=== PATIENT | female | born 1960 | race Asian ===

== ENCOUNTER 2019-11-09 18:09 | Emergency (ER) | payer BC ==
[2019-11-09 18:22] VITALS: BP 165/95; PULSE 70; TEMP 98.8; BMI 23.9
--- NOTE | 2019-11-09 18:43 | PDOC ---
History of Present Illness - General Chief Complaint: Pain, Acute Stated Complaint: LEFT KNEE PAIN Time Seen by Provider: 11/09/19 18:13 History Source: Patient Exam Limitations: No Limitations - History of Present Illness Initial Comments: 11/09/19 18:21 58 yo female pmh L meniscal repair/removal presents to the ED s/p mechanical fall with pain the the left knee. Pt reports hiking 3 hours ago, slipping and fell with sudden onset pain to the left knee and swelling. Pt unable to bare weight on the knee and reports significant swelling. Pt took 800 mg Motrin 2 hours ago with significant improvement in pain but still is unable to bare weight or bend the knee past 25 degrees. Denies feelings of instability in the knee, denies sensory changes or coldness into the foot. Pt denies hitting her head, ALFARO, LOC, neck pain, midline spine tenderness, CP, SOB, abdominal pain or pain anywhere other than the left knee Past History - Medical History Allergies/Adverse Reactions: Allergies Allergy/AdvReac Type Severity Reaction Status Date / Time No Known Allergies Allergy Unverified 11/09/19 18:13 Home Medications: Ambulatory Orders Levothyroxine [Synthroid -] 75 mcg PO DAILY 11/09/19 Review of Systems - Review of Systems Constitutional: Yes: Symptoms Reported Cardiac (ROS): Yes: Symptoms Reported ABD/GI: Yes: Symptoms Reported : Yes: Symptoms Reported Musculoskeletal: Yes: Symptoms Reported Integumentary: Yes: Symptoms Reported Neurological: Yes: Symptoms reported *Physical Exam - Physical Exam General Appearance: Yes: Nourished, Appropriately Dressed, Apparent Distress HEENT: positive: EOMI Neck: positive: Supple. negative: Tender lateral, Tender midline Respiratory/Chest: positive: Lungs Clear, Normal Breath Sounds. negative: Accessory Muscle Use, Decreased Breath Sounds, Crackles, Rales, Rhonchi, Stridor, Wheezing Cardiovascular: positive: Regular Rhythm, Regular Rate, S1, S2. negative: Edema, JVD, Murmur Vascular Pulses: Dorsalis-Pedis (R): 4+, Doralis-Pedis (L): 4+ Gastrointestinal/Abdominal: positive: Flat, Soft. negative: Pulsatile Mass, Protuberent, Distended, Guarding, Rebound, Tenderness Musculoskeletal: negative: CVA Tenderness Extremity: positive: Normal Capillary Refill, Normal Inspection, Swelling, Other (inability to bare weight or range past 25 degrees). negative: Normal Range of Motion (limited by swelling and pain) Integumentary: positive: Normal Color, Dry, Warm, Swelling Neurologic: positive: vp customer development II-XII NML intact, Fully Oriented, Alert, Normal Mood/Affect, Normal Response, Motor Strength 07/09 ED Treatment Course - RADIOLOGY Radiology Studies Ordered: Category Date Time Status FEMUR-LEFT [RAD] Stat Radiology 11/09/19 18:18 Ordered KNEE 3 POS-LEFT [RAD] Stat Radiology 11/09/19 18:18 Ordered Medical Decision Making - Medical Decision Making 11/09/19 18:43 58 yo female pmh L meniscal repair/removal presents to the ED s/p mechanical fall with pain the the left knee. Pt reports hiking 3 hours ago, slipping and fell with sudden onset pain to the left knee and swelling. Pt unable to bare weight on the knee and reports significant swelling. Pt took 800 mg Motrin 2 hours ago with significant improvement in pain but still is unable to bare weigh t or bend the knee past 25 degrees. Denies feelings of instability in the knee, denies sensory changes or coldness into the foot. Pt denies hitting her head, ALFARO, LOC, neck pain, midline spine tenderness, CP, SOB, abdominal pain or pain anywhere other than the left knee Vitals stable pt has significant swelling to the left knee when compared to the right and limited ROM Will do X ray and reassess Pt denies wanting pain medicine at this time since her pain was controlled with Motrin 11/09/19 18:54 Pending X ray and likely DC with crutches and a a knee wrap if no fracture. Requires Ortho f/u Discharge - Discharge Information Problems reviewed: Yes Clinical Impression/Diagnosis: Knee pain Condition: Stable - Admission No - Follow up/Referral - Patient Discharge Instructions - Post Discharge Activity
--- NOTE | 2019-11-09 18:44 | PDOC ---
Attending Attestation - Resident Resident Name: Fernando Mccoy - ED Attending Attestation I have performed the following: I have examined & evaluated the patient, The case was reviewed & discussed with the resident, I agree w/resident's findings & plan, Exceptions are as noted - HPI HPI: 11/09/19 18:33 58YOF with prior knee surgery for meniscus injury who p/w mechanical [id number] onto her left knee while hiking this afternoon. The patient states she took Motrin with relief of her pain and now only has pain when she walks. She is having difficulty with any weight bearing and also with flexing at the knee d/t the pain. Denies any skin tears, any other injury resulting from the fall, denies hitting head or losing consciousness, denies n/t/f focally. Denies any preceding symptoms. - Physicial Exam PE: 11/09/19 19:02 GENERAL: well-appearing, A/Ox4, no distress, answers questions appropriately, speaks some [place], accompanied by two family members at bedside HEENT: PERRLA, EOMI, moist mucous membranes NECK/BACK: no midline ttp, no spinal step-off or deformity, no hematoma, full ROM, neck supple CARDIOVASCULAR: regular rate/rhythm, no MGR, strong peripheral pulses, capillary refill <2 seconds, extremities wwp, no edema LUNGS/RESPIRATORY: no respiratory distress, CTAB GI/ABDOMEN: symmetric [id number], normoactive BS, soft, no ttp, no midline pulsatile masses : no CVA tenderness MSK/EXTREMITIES: left medial and superior jointline of knee with ttp and mild- moderate effusion, no palpable bony deformity of patella, distal femur, or proximal tibia or fibula, patient is only able to flex to 15 degrees from full extension states d/t pain, NV intact distally with 2+ DP pulses, no instability to varus or valgus stress at the knee, negative anterior and posterior drawers SKIN: warm and dry, no pallor, no jaundice, no rash, no pathologic-appearing bruising, no skin breakdown, no cuts, no lesions NEUROLOGICAL: GCS 15, CN II-XII grossly intact, 5/5 strength proximally and distally, no facial droop - Medical Decision Making 11/09/19 19:09 58YOF with prior meniscus injury and surgical repair who p/w mechanical slip/fall and left knee injury. Initial Vital Signs Temp Pulse Resp BP Pulse Ox 98.8 F 70 18 165/95 97 11/09/19 18:11 11/09/19 18:11 11/09/19 18:11 11/09/19 18:11 11/09/19 18:11 Most likely knee effusion, contusion, strain, sprain, etc. Possible ligamentous injury or repeat meniscus injury (unclear how much of the patient's [place] meniscus is left in that knee). Possible hemarthrosis. Less likely without bony deformity but still possible is fracture, unlikely dislocation. Patient states it is not painful unless she bears weight or tries to flex the knee. Will get XR knee and femur to ensure no fxr, will give her crutches and instruct to WBAT, she already has a knee brace, and patient will need to f/u with orthopedics early next week. RAD/KNEE 3 POS-LEFT Left knee: Fall. Pain. 3 views of the left knee reveal no sign of fracture or subluxation and no sign of blastic or lytic changes. Swelling, foreign body or soft tissue is not seen. If symptoms persist, further imaging may be of help. Impression: No acute left knee pathology. RAD/FEMUR-LEFT Left femur: Fall. Pain. 4 views of the left femur reveal no sign of fracture or subluxation and no sign of blastic or lytic changes. Swelling, foreign body or soft tissue air is not seen. The knee joint and hip joint appear intact. If symptoms persist, further imaging may be of help. Impression: No acute left femur pathology Discharge - Discharge Information Problems reviewed: Yes Clinical Impression/Diagnosis: Left knee injury Qualifiers: Encounter type: initial encounter Qualified Code(s): S89.92XA - Unspecified injury of left lower leg, initial encounter Condition: Stable Disposition: HOME - Admission No - Follow up/Referral Referrals: Faraz Kraft MD [Staff Physician] - Inocente Walker MD [Staff Physician] - Tucker Ashby DO [Staff Physician] - - Patient Discharge Instructions Additional Instructions: You were seen in the ER for a knee injury. We did an exam and X-rays, which showed no new concerning findings or fractures. We made sure you had a knee brace and crutches, which you can use for comfort as you need it. You can bear weight on the ankle/foot as tolerated (as your pain allows). After our assessment, we do not believe you are having a medical emergency at this time, and we believe you are safe to go home. Use RICE therapy (rest, ice, compression, elevation) and take Tylenol and Motrin for the pain. We are giving you referral information for our orthopedist, so if you have continued symptoms in 1-2 weeks, please feel free to follow up with them. Please also follow up with your primary care provider in 1-3 days. Call their clinic as soon as possible, tell them you were seen in the ER, and tell them you need an appo intment. If you have any new or worsening symptoms, especially worsening or severe pain of the thigh, knee, calf, or ankle/foot, or any numbness, tingling, weakness, redness, or paleness of the area, please come back to the ER at any time (24 hours a day). - Post Discharge Activity Work/Back to School Note: Back to Work
== END 2019-11-09 19:55 | disposition home or self-care (01) ==
LOC: FER 18:09
DX: S89.92XA Unspecified injury of left lower leg, initial encounter (principal)
CPT/HCPCS: 73552-TC-LT-FY; 73562-TC-LT-FY; 99284-25